=== PATIENT | female | born 1965 | race American Indian/Alaskan Native ===

== ENCOUNTER 2019-04-26 09:18 | Emergency (ER) | payer SELFPAY ==
--- NOTE | 2019-04-26 12:51 | XRay Report ---
CHEST 2 VIEWS INDICATION: cough and chest pain. COMPARISON: 01/12/2012 FINDINGS: Support devices: None. Heart: Within normal limits. Lungs/Pleura: No acute air space or interstitial disease. No significant pleural effusion. IMPRESSION: No acute findings. Signer Name: Luis Alfredo Patel MD Signed: 04/26/2019 12:47 PM Workstation Name: [id number]
--- NOTE | 2019-04-26 14:07 | Emergency Department Report ---
- General Chief Complaint: Upper Respiratory Infection Stated Complaint: FLU Time Seen by Provider: 04/26/19 12:13 Source: patient Mode of arrival: Ambulatory Limitations: No Limitations - History of Present Illness MD Complaint: cough, rhinorrhea -: Gradual, days(s) (5) Quality: dull Consistency: constant - Related Data Previous Rx's Medication Instructions Recorded Last Taken Type Benzonatate [Tessalon Perles] 100 mg PO Q8HR #20 capsule 04/26/19 Unknown Rx predniSONE [Deltasone] 20 mg PO QDAY #5 tab 04/26/19 Unknown Rx Allergies Allergy/AdvReac Type Severity Reaction Status Date / Time No Known Allergies Allergy Unverified 04/26/19 09:23 ED Review of Systems ROS: Stated complaint: FLU Other details as noted in HPI Comment: All other systems reviewed and negative ED Past Medical Hx - Past Medical History Previous Medical History?: Yes Hx Hypertension: Yes - Surgical History Past Surgical History?: No - Social History Smoking Status: Never Smoker Substance Use Type: Alcohol, Prescribed - Medications Home Medications: Home Medications Medication Instructions Recorded Confirmed Last Taken Type Benzonatate [Tessalon Perles] 100 mg PO Q8HR #20 capsule 04/26/19 Unknown Rx predniSONE [Deltasone] 20 mg PO QDAY #5 tab 04/26/19 Unknown Rx ED Physical Exam - General Limitations: No Limitations General appearance: alert, in no apparent distress - Head Head exam: Present: atraumatic, normocephalic - Eye Eye exam: Present: normal appearance, PERRL, EOMI Pupils: Present: normal accommodation - ENT ENT exam: Present: normal exam, normal orophraynx, mucous membranes moist - Neck Neck exam: Present: normal inspection, full ROM. Absent: meningismus, lymphadenopathy, thyromegaly - Respiratory Respiratory exam: Present: normal lung sounds bilaterally. Absent: respiratory distress, wheezes, rales, rhonchi, accessory muscle use, decreased breath sounds - Cardiovascular Cardiovascular Exam: Present: regular rate, normal rhythm. Absent: systolic murmur, diastolic murmur, rubs, gallop - GI/Abdominal GI/Abdominal exam: Present: soft, normal bowel sounds - Extremities Exam Extremities exam: Present: normal inspection - Back Exam Back exam: Present: normal inspection - Neurological Exam Neurological exam: Present: alert, oriented X3 - Psychiatric Psychiatric exam: Present: normal affect, normal mood - Skin Skin exam: Present: warm, dry, intact, normal color. Absent: rash ED Course Vital Signs 04/26/19 09:23 Temperature 98.9 F Pulse Rate 89 Respiratory 18 Rate Blood Pressure 188/106 O2 Sat by Pulse 97 Oximetry ED Medical Decision Making - Radiology Data Radiology results: report reviewed Print Report Referring Physician:ZAN OATESPatient Name:NAILA PETTITPatient ID:[id number] of :[id number]:FemaleAccession:[id number] Date:[id number] Status:Finalized Findings [facility] [address] [place] [address] XRay Report Signed Patient: NAILA PETTIT MR#: [id number] : 1965 Acct:[id number] Age/Sex: 53 / F ADM Date: 04/26/19 Loc: ED Attending Dr: Ordering Physician: TORY PRUITT Date of Service: 04/26/19 Procedure(s): XR chest routine 2V Accession Number(s): [id number] cc: TORY PRUITT Fluoro Time In Minutes: CHEST 2 VIEWS INDICATION: cough and chest pain. COMPARISON: 01/12/2012 FINDINGS: Support devices: None. Heart: Within normal limits. Lungs/Pleura: No acute air space or interstitial disease. No significant pleural effusion. IMPRESSION: No acute findings. Signer Name: Luis Alfredo Patel MD Signed: 04/26/2019 12:47 PM Workstation Name: [id number] Transcribed By: ES Dictated By: Luis Alfredo Patel MD Electronically Authenticated By: Luis Alfredo Patel MD Signed Date/Time: 04/26/19 1247 DD/ 1246 Critical care attestation.: If time is entered above; I have spent that time in minutes in the direct care of this critically ill patient, excluding procedure time. ED Disposition Clinical Impression: Viral syndrome Disposition: DC-01 TO HOME OR SELFCARE Is pt being admited?: No Does the pt Need Aspirin: No Condition: Stable Instructions: Viral Syndrome (ED), Cold Symptoms (ED) Referrals: PRIMARY CARE, [Primary Care Provider] - 3-5 Days [facility] [Provider Group] - 3-5 Days
[2019-04-26 14:30] VITALS: BP 148/89
== END 2019-04-26 14:30 | disposition home or self-care (01) ==
LOC: ED 09:18
DX: B34.9 Viral infection, unspecified (principal); I10 Essential (primary) hypertension; Z79.899 Other long term (current) drug therapy
CPT/HCPCS: 71046